=== PATIENT | female | born 1975 | race Caucasian/White ===

== ENCOUNTER → 2022-07-22 13:16 | Outpatient (CLI) | payer OTHER, SELFPAY ==
--- NOTE | 2022-07-22 13:18 | DI.RAD.S_ITS ---
PROCEDURE: XR SHOULDER RT MIN 2V INDICATIONS: Right shoulder/neck pain, radiculopathy, reduced ROM no inj TECHNIQUE: 3 views of the shoulder were acquired. COMPARISON: [facility], CR, XR CERVICAL SPINE 2V OR 3V, 07/22/2022, 13:16. FINDINGS: Bones: No fractures or dislocations. No suspicious bony lesions. Visualized ribs appear intact. Mild degenerative change can be seen, with mild subacromial spurring. Soft tissues: No suspicious soft tissue calcifications. The visualized lung demonstrates an unremarkable appearance. IMPRESSION: Mild degenerative changes are seen by plain film. If it would be helpful for clinical management decision making, please consider a dedicated, scheduled shoulder MRI for further evaluation (assuming that there is no contraindication). Dictated by: Zan Mahmood M.D. on 07/22/2022 at 13:13 Approved by: Zan Mahmood M.D. on 07/22/2022 at 13:14
--- NOTE | 2022-07-22 13:18 | DI.RAD.S_ITS ---
PROCEDURE: XR CERVICAL SPINE 2V OR 3V INDICATIONS: Right shoulder/neck pain, radiculopathy, reduced ROM no inj TECHNIQUE: 3 view(s) of the cervical spine were acquired. COMPARISON: [facility], CR, XR SHOULDER RT MIN 2V, 07/22/2022, 13:16. FINDINGS: Bones: No fractures or dislocations to the T1 level. The lateral masses of C1 appear intact on the odontoid view. No suspicious bony lesions. Mild disc space narrowing can be seen at C5-C6. The disc heights otherwise appear well-preserved. There is overall straightening of the normal cervical lordosis. Soft tissues: No prevertebral soft tissue swelling. The visualized lung apices are unremarkable. IMPRESSION: Straightening of the normal cervical lordosis is seen, which is commonly observed in patients with muscular spasm. Focal C5-C6 degenerative change is seen. If it would be helpful for clinical management decision making, please consider a dedicated cervical spine MRI for further evaluation (assuming that there is no contraindication). Dictated by: Zan Mahmood M.D. on 07/22/2022 at 13:14 Approved by: Zan Mahmood M.D. on 07/22/2022 at 13:15
== END ==
PROVIDERS: Referring Provider Student in an Organized Health Care Education/Training Program; Visit Provider Student in an Organized Health Care Education/Training Program
DX: M25.511 Pain in right shoulder; M54.2 Cervicalgia; M79.2 Neuralgia and neuritis, unspecified
CPT/HCPCS: 72040; 73030